=== PATIENT | male | born 2000 | race Caucasian/White ===

== ENCOUNTER → 2021-10-28 17:42 | Outpatient (CLI) | payer BC, SELFPAY | PROVIDERS: Visit Provider Nurse Practitioner | DX: Z20.822 Contact with and (suspected) exposure to COVID-19 (principal) | CPT/HCPCS: C9803; U0003; U0005 ==

== ENCOUNTER 2022-12-18 12:16 | Emergency (ER) | payer BC, SELFPAY ==
[2022-12-18 12:25] VITALS: BP 116/79; PULSE 83; RESP 22; TEMP 36.9; O2SAT 100; BMI 23.6
--- NOTE | 2022-12-18 12:38 | EXP.UTC ---
Discharge Plan Disposition Patient Disposition: Home, Self-Care Condition: Good Prescriptions Prescriptions: New promethazine 25 mg Tablet 25 mg PO Q6H PRN (Reason: Nausea And Vomiting) Qty: 20 0RF No Action Vyvanse 70 mg capsule 70 mg PO DAILY Label Comments: TAKE 1 CAPSULE BY MOUTH EVERY DAY Referrals Follow up/Referrals: Wade Galindo [Primary Care Provider] - See instructions Activity Restrictions/Add. Instructions Additional Instructions/Restrictions: Drink plenty of fluids. Take tylenol for pain or fever. Take the medications as directed. Follow up with your regular doctor. GO TO THE ER FOR ANY WORSENING SYMPTOMS Clinical Impressions Clinical Impression: Gastroenteritis Stand Alone Forms Stand Alone Forms: Work/School Release Instructions Patient Instructions: DI for Viral Gastroenteritis -- Adult, Promethazine Discharge ED Provider: Tommy Warner [facility] General Stated complaint: Vomiting fever chills Mode of Arrival: Ambulatory Source of Information: Patient Limitations: No Limitations Time Seen by Provider: 12/18/22 12:38 Description of Symptoms (Recalled from Triage Doc. by RN): PATIENT C/O STOMACH PAIN, VOMITING, FEVER, AND COLD CHILLS SINCE LAST NIGHT HEENT Symptoms (Recalled from RN notes): No Resp Symptoms (Recalled from RN notes): No Skin Symptoms (Recalled from RN notes): No MS Symptoms (Recalled from RN notes): No Functional Status (Recalled from RN notes): WNL History of Present Illness Provider Complaint: He states that since last night he has had n/v/d. He denies abdominal pain, but he is having generalized abdominal tenderness. He has had chilling but no fever. Related Data Home Medications Medication Instructions Recorded Confirmed lisdexamfetamine 70 mg capsule 70 mg PO DAILY ADHD 12/18/22 12/18/22 (Vyvanse) Previous Rx's Medication Instructions Recorded promethazine 25 mg tablet 25 mg PO Q6H PRN Nausea And 12/18/22 Vomiting #20 tabs Allergies Allergy/AdvReac Type Severity Reaction Status Date / Time No Known Allergies Allergy Verified 12/18/22 12:36 Worker's Comp Is this a Worker's Comp case?: No [facility] Disclaimer: The information contained in this section may have been updated after the patient was seen, as this information can be updated by other users. Social History Smoking Status: Never smoker alcohol intake: never current occupational status: employed Travel in the last 8 weeks: None ROS Obtained: Yes All systems reviewed & no additional complaints except as documented Constitutional Constitutional: Denies chills, Denies fever(s) and Reports poor appetite ENT Ears, Nose, Mouth, and Throat: Denies dizziness and Denies sore throat Cardiovascular Cardiovascular: Denies dyspnea Respiratory Respiratory: Denies chest congestion, Denies cough and Denies dyspnea Gastrointestinal Gastrointestingal: Reports as per HPI Genitourinary Male Genitourinary: Denies hematuria, Denies urinary frequency, Denies urinary hesitancy, Denies urinary incontinence and Denies urinary urgency Musculoskeletal Musculoskeletal: Denies arthralgias Integumentary/Breasts Skin/Breast: Denies rash Neurologic Neurologic: Denies dizziness Physical Exam General General appearance: alert and in no apparent distress Head Head exam: atraumatic and normocephalic Eye Eye exam: Present normal appearance, PERRL and EOMI ENT ENT exam: Present normal exam, normal oropharynx, mucous membranes moist, TM's normal bilaterally and normal external ear exam Neck Neck exam: Present normal inspection, full ROM and trachea midline; Absent tenderness, meningismus or lymphadenopathy Chest Chest inspection: Present normal inspection and symmetric chest wall rise; Absent tenderness, rash or abscess Respiratory Respiratory exam: Present normal lung sounds bilaterally; Absent respiratory
[2022-12-18 13:13] VITALS: BP 116/79; PULSE 83; RESP 22; TEMP 36.9; O2SAT 100
== END 2022-12-18 13:16 | disposition home or self-care (01) ==
PROVIDERS: Emergency Provider Nurse Practitioner Family; PCP Internal Medicine
DX: K52.9 Noninfective gastroenteritis and colitis, unspecified (principal)
CPT/HCPCS: 99212; 99213; G0463

== ENCOUNTER 2023-04-18 11:35 | Emergency (ER) | payer SELFPAY ==
[2023-04-18 11:36] VITALS: BP 114/81; PULSE 75; RESP 18; TEMP 37; O2SAT 100; BMI 21.6
--- NOTE | 2023-04-18 11:40 | HMH.EDUPEXT ---
Discharge Plan Disposition Patient Disposition: Home, Self-Care Prescriptions Prescriptions: No Action Vyvanse 70 mg capsule 70 mg PO DAILY Patient Comments: TAKE 1 CAPSULE BY MOUTH EVERY DAY promethazine 25 mg Tablet 25 mg PO Q6H PRN (Reason: Nausea And Vomiting) Qty: 20 0RF Activity Restrictions/Add. Instructions Additional Instructions/Restrictions: Keep the wound clean and dry. In a day or 2 you can remove the dressing and wash the wound and pat it dry carefully. Do not soak the wound. Follow-up with your primary care doctor in about 3 days for a wound check. Return immediately to the emergency department if you feel worse in any way. You can take [id number] Tylenol and or ibuprofen for your pain. Clinical Impressions Clinical Impression: Laceration of finger of right hand Qualifiers: Encounter type: initial encounter Finger: ring finger Damage to nail status: without damage Foreign body presence: without foreign body Qualified Code(s): S61.214A - Laceration without foreign body of right ring finger without damage to nail, initial encounter Instructions Patient Instructions: DI for Laceration Repair -- Finger Discharge ED Provider: Hunter Moise Upper Extremity HPI General Stated Complaint: AO [id number] lac to right ring finger Time Seen by Provider: 04/18/23 11:40 Mode of Arrival: Family Vehicle Source of Information: Patient History of Present Illness HPI narrative: The patient presents to the emergency department after having sustained a laceration to his right ring finger while cutting vegetables. He sliced his finger with a vegetable knife at home. He denies any other injuries. He is unsure of his last tetanus immunization. Other Extremity Injury: Right: fingers Related Data Home Medications Medication Instructions Recorded Confirmed lisdexamfetamine 70 mg capsule 70 mg PO DAILY ADHD 12/18/22 12/18/22 (Vyvanse) Previous Rx's Medication Instructions Recorded promethazine 25 mg tablet 25 mg PO Q6H PRN Nausea And 12/18/22 Vomiting #20 tabs Allergies Allergy/AdvReac Type Severity Reaction Status Date / Time No Known Allergies Allergy Verified 12/18/22 12:36 [facility] Disclaimer: The information contained in this section may have been updated after the patient was seen, as this information can be updated by other users. Social History (Updated 12/18/22 @ 14:37 by Tommy Timmy, [employer]) Smoking Status: Never smoker alcohol intake: never current occupational status: employed Travel in the last 8 weeks: None ROS Obtained: Yes All systems reviewed & no additional complaints except as documented Physical Exam General General appearance: alert and in no apparent distress Head Head exam: atraumatic Respiratory Respiratory exam: Present normal lung sounds bilaterally Cardiovascular Cardiovascular exam: Present regular rate Extremities Exam Extremities exam: Present full ROM and other (The ulnar aspect of the distal soft tissues of the ring finger are missing. It is a clean cut. No bone is visible.) Back Exam Back exam: Present normal inspection Neurological Exam Neurological exam: Present alert and oriented X3 Medical Decision Making Abner Inquiry Pt receiving controlled substance: No Medical Decision Narrative: The patient sustained a laceration with a kitchen knife to his right ring finger. The wound does not lend itself to repair. The wound was cleansed and dressed. The patient tolerated the procedure well. He was given Toradol and his tetanus immunization was updated. He can be safely discharged home with instructions to follow-up with his primary care doctor to follow-up with wound healing. Critical Care Time Critical Care Time Critical Care Time: No Attestation: On , the high probability of a clinically significant, sudden or life threatening deterioration of the following system(s) required my full and direct attention, int
[2023-04-18 12:19] VITALS: BP 114/81; PULSE 75; RESP 18; TEMP 37; O2SAT 100
== END 2023-04-18 12:19 | disposition home or self-care (01) ==
PROVIDERS: Emergency Provider Emergency Medicine
DX: S61.214A Laceration without foreign body of right ring finger without damage to nail, initial encounter (principal); W26.0XXA Contact with knife, initial encounter; Y93.G1 Activity, food preparation and clean up; Z23 Encounter for immunization
CPT/HCPCS: 90715; 96372; 99283; 99284